=== PATIENT | female | born 1990 | race Caucasian/White ===

== ENCOUNTER 2019-04-13 19:14 | Emergency (ER) | payer OTHER ==
[~2019-04-13] VITALS: Ht 162.6 cm; Wt 75.9 kg
[2019-04-13 19:21] VITALS: BP 135/72
--- NOTE | 2019-04-13 19:23 | NUR ---
TO ED LOBBY AWATING BED IN MAIN ED. VSS.
--- NOTE | 2019-04-13 21:15 | NUR ---
PT AMBULATED TO BE 07
--- NOTE | 2019-04-13 21:25 | NUR ---
PT PRESENTS TO ED FOR EVALUATION OF LOWER BACK PAIN. PT STATED FELL 2 DAYS AGO, NO APPARENT INJURY. AAO X4, GCS 15, RESPIRATIONS EVEN AND UNLABORED, BL LUNG CLEAR. SKIN WARM/PINK/DRY, +PMSC. ABDOMEN SOFT, NON DISTENDED, ACTIVE BOWEL SOUND X4. VSS, STATED LOWER BACK PAIN 7/10. ED PROVIDER MADE AWARE OF PT STATUS. WILL CONTINUE TO MONITOR
[2019-04-13] MEDS ORDERED: KETOROLAC 60 MG/2 ML VIAL IM ONE (21:55)
[2019-04-13 22:23] VITALS: BP 135/72
--- NOTE | 2019-04-13 22:23 | NUR ---
Patient discharged with v/s stable. Written and verbal after care instructions given and explained. Patient alert, oriented and verbalized understanding of instructions. Ambulatory with steady gait. All questions addressed prior to discharge. ID band removed. Patient advised to follow up with PMD. Rx of NAPROSYN, ROBAXIN, MEDROL WAS given. Patient educated on indication of medication including possible reaction and side effects. Opportunity to ask questions provided and answered. PT WAS GIVEN A NOTE FOR WORK, PER PT REQUEST. PT STATED SHE NO LONGER HAD PAIN 0/10 PRIOR TO D/C
== END 2019-04-13 22:23 | disposition home or self-care (01) ==
LOC: MED 19:14
DX: M54.5 Low back pain (principal)
CPT/HCPCS: 72100; 81002; 81025; 96372; 99283; J1885

== ENCOUNTER 2020-11-13 17:19 | Emergency (ER) | payer MEDICAID, OTHER ==
[~2020-11-13] VITALS: Ht 157.5 cm; Wt 63.5 kg
[2020-11-13 17:46] VITALS: BP 135/94
[2020-11-13] MEDS: KETOROLAC 30 MG/ML VIAL IM ONE (18:21)
[2020-11-13 20:36] VITALS: BP 135/94
== END 2020-11-13 20:36 | disposition home or self-care (01) ==
LOC: MED 17:19
DX: N83.202 Unspecified ovarian cyst, left side (principal); N83.201 Unspecified ovarian cyst, right side
CPT/HCPCS: 76856; 81002; 81025; 96372; 99284; J1885